=== PATIENT | female | born 2000 | race Caucasian/White ===

== ENCOUNTER 2025-03-12 23:10 | Emergency (ER) | payer BC ==
[2025-03-12] MEDS ORDERED: Etomidate 40 MG (20 mL) VIAL ONE (23:29)
== END 2025-03-13 00:31 | disposition home or self-care (01) ==
LOC: CSHERS 23:10
DX: S43.015A Anterior dislocation of left humerus, initial encounter (principal); W18.2XXA Fall in (into) shower or empty bathtub, initial encounter
CPT/HCPCS: 23650; 99152; J3360

== ENCOUNTER 2025-03-16 13:30 | Emergency (ER) | payer BC ==
[2025-03-16 15:10] LABS: BHCG - Serum Negative (NEGATIVE); Pregs Control Background? CLEAR/WHITE (CLR/WHITE); Pregs Control Bar Appear? YES (CONTROL BAR)
[2025-03-16] MEDS ORDERED: PROPOFOL 20 ML ONE (15:54)
[2025-03-16] MEDS ORDERED: HYDROmorphone 0.5 MG/0.5 ML SYRINGE ONE (16:30)
== END 2025-03-16 17:20 | disposition home or self-care (01) ==
LOC: CSHERS 13:30
DX: S43.035A Inferior dislocation of left humerus, initial encounter (principal); W18.30XA Fall on same level, unspecified, initial encounter
CPT/HCPCS: 23650; 84703; 94760; 96374; 96375; 96376; 99152; J1171; J2270; J2704

== ENCOUNTER 2025-03-22 07:33 | Emergency (ER) | payer BC ==
[2025-03-22] MEDS ORDERED: Lidocaine 1% (PF) 30 ML VIAL ONE (07:47)
[2025-03-22] MEDS ORDERED: PROPOFOL 20 ML ONE (08:03)
[2025-03-22] MEDS ORDERED: levETIRAcetam 500 MG (5 mL) VIAL ONE (09:19)
== END 2025-03-22 09:58 | disposition home or self-care (01) ==
LOC: CSHERS 07:33
DX: S43.005A Unspecified dislocation of left shoulder joint, initial encounter (principal); R56.9 Unspecified convulsions; X58.XXXA Exposure to other specified factors, initial encounter
CPT/HCPCS: 23650; 96372; 96374; J1953; J2003; J2704; J3010